=== PATIENT | female | born 1945 | race Caucasian/White ===

== ENCOUNTER 2017-03-04 10:09 | Emergency (ER) | payer OTHER ==
[2017-03-04 10:13] VITALS: BP 145/93; BMI 39.0
--- NOTE | 2017-03-04 11:28 | DR.GENAD ---
HPI - PCP Primary Care Physician: VAZQUEZ - Complaint/Symptoms Chief Complaint:: PT. C/O FEVER, BODY ACHES, SORE THROAT, COUGH, WHEEZING, RIB PAIN. - Source History Provided: Patient - Mode of Arrival Mode of Arrival: Ambulatory - Timing Onset of Chief Complaint: 03/02/17 PMH - PMH Past Medical History: Yes Past Medical History: Hyperthyroidism Past Medical History Comment: A-FIB Past Surgical History: Yes Surgical History: Other Past Surgical History Comment: CATARACTS, HEART ABLATION - Family History History of Family Medical Conditions: No - Social History Does patient currently use any type of tobacco product: No Have you used tobacco products in the last 12 months: No Type of Tobacco Use: None Does any household member use tobacco: No Alcohol Use: None Do you use any recreational Drugs:: No Lives With: Spouse Lives Where: Home - infectious screening In the last 2 months have you had wt loss of >10#?: NO Have you had fever, night sweats or hemotysis?: No Have you traveled outside the country in the last 6 months?: No Isolation: Standard PE - Vital Signs Vitals: Temperature 98.9 F Pulse Rate 92 Respiratory Rate 20 Blood Pressure 145/93 O2 Sat by Pulse Oximetry 95 ROR - Labs Reviewed Result Diagrams: 03/04/17 11:38 03/04/17 11:38 Laboratory: WBC 5.3 X10^3/uL (3.6-10.0) 03/04/17 11:38 RBC 4.39 X10^6/uL (3.5-5.4) 03/04/17 11:38 Hgb 13.3 g/dL (12.0-16.0) 03/04/17 11:38 Hct 39.2 % (36.0-47.0) 03/04/17 11:38 MCV 89.3 fL (80.0-100.0) 03/04/17 11:38 MCH 30.2 pg (27.0-34.0) 03/04/17 11:38 MCHC 33.8 g/dL (33.0-35.0) 03/04/17 11:38 RDW 14.3 % (11.6-16.5) 03/04/17 11:38 Plt Count 146 X10^3/uL (150.0-450.0) L 03/04/17 11:38 MPV 7.0 fL (7.4-11.0) L 03/04/17 11:38 Neut % 62.6 % (42.0-75.0) 03/04/17 11:38 Lymph % 29.8 % (21.0-51.0) 03/04/17 11:38 [place] % 6.2 % (0.0-13.0) 03/04/17 11:38 Eos % 0.9 % (0.9-2.9) 03/04/17 11:38 Baso % 0.5 % (0.2-1.0) 03/04/17 11:38 Neut # 3.3 x10^3/uL (2.2-4.8) 03/04/17 11:38 Lymph # 1.6 X10^3/uL (1.3-2.9) 03/04/17 11:38 [place] # 0.3 x10^3/uL (0.3-0.8) 03/04/17 11:38 Eos # 0.1 x10^3/uL (0.0-0.2) 03/04/17 11:38 Baso # 0.0 X10^3/uL (0.0-0.1) 03/04/17 11:38 Absolute Nucleated RBC 0.0 /100WBC 03/04/17 11:38 Sodium 139 mmol/L (136-145) 03/04/17 11:38 Corrected Sodium 139 mmol/L (136-145) 03/04/17 11:38 Potassium 4.2 mmol/L (3.5-5.1) 03/04/17 11:38 Chloride 102 mmol/L (98-107) 03/04/17 11:38 Carbon Dioxide 28.3 mmol/L (21-32) 03/04/17 11:38 BUN 12 mg/dL (7-18) 03/04/17 11:38 Creatinine 1.01 mg/dL (0.55-1.02) 03/04/17 11:38 Est GFR (MDRD) Af Amer > 60 (>60) 03/04/17 11:38 Est GFR (MDRD) Non-Af 57 (>60) L 03/04/17 11:38 Glucose 113 mg/dL (65-99) H 03/04/17 11:38 Calcium 8.7 mg/dL (8.5-10.1) 03/04/17 11:38 Corrected Calcium TNP 03/04/17 11:38 Total Bilirubin 0.50 mg/dL (0.2-1.0) 03/04/17 11:38 AST 33 Units/L (15-37) 03/04/17 11:38 ALT 43 Units/L (12-78) 03/04/17 11:38 Alkaline Phosphatase 65 Units/L (46-116) 03/04/17 11:38 Total Protein 7.7 g/dL (6.4-8.2) 03/04/17 11:38 Albumin 3.8 g/dL (3.4-5.0) 03/04/17 11:38 Globulin 3.9 g/dL (2.5-4.5) 03/04/17 11:38 Albumin/Globulin Ratio 1.0 Ratio (1.1-2.1) L 03/04/17 11:38 Influenza Type A (PCR) Positive (NEGATIVE) A 03/04/17 11:39 Influenza Type B (PCR) Negative (NEGATIVE) 03/04/17 11:39 - Discharge Plan Disposition: 01 HOME, SELF-CARE Condition: Stable Prescriptions: Benzonatate [TESSALON PERLES *] 200 mg PO TID PRN #30 cap PRN Reason: Cough Doxycycline Monohydrate 100 mg PO BID #20 tablet Oseltamivir Phosphate [Tamiflu] 75 mg PO BID #10 cap - Follow ups/Referrals Follow ups/Referrals: CHALINO VAZQUEZ [Primary Care Provider] - 3 days - Instructions Instructions: Influenza, Adult, [id number], Acute Bronchitis, [id number] Additional Instructions: RETURN TO ED IF WORSE.
[2017-03-04 11:51] LABS: BASOPHILS % (AUTO) 0.5 % (0.2-1.0); EOSINOPHILS # (AUTO) 0.1 x10^3/uL (0.0-0.2); EOSINOPHILS % (AUTO) 0.9 % (0.9-2.9); HEMATOCRIT 39.2 % (36.0-47.0); HEMOGLOBIN 13.3 g/dL (12.0-16.0); LYMPHOCYTES # (AUTO) 1.6 X10^3/uL (1.3-2.9); LYMPHOCYTES % (AUTO) 29.8 % (21.0-51.0); MEAN CORPUSCULAR HEMOGLOBIN 30.2 pg (27.0-34.0); MEAN CORPUSCULAR HGB CONC 33.8 g/dL (33.0-35.0); MEAN CORPUSCULAR VOLUME 89.3 fL (80.0-100.0); MONOCYTES # (AUTO) 0.3 x10^3/uL (0.3-0.8); MONOCYTES % (AUTO) 6.2 % (0.0-13.0); NEUTROPHILS # (AUTO) 3.3 x10^3/uL (2.2-4.8); NEUTROPHILS % (AUTO) 62.6 % (42.0-75.0); PLATELET COUNT 146 X10^3/uL (150.0-450.0); RED BLOOD COUNT 4.39 X10^6/uL (3.5-5.4); RED CELL DISTRIBUTION WIDTH 14.3 % (11.6-16.5); WHITE BLOOD COUNT 5.3 X10^3/uL (3.6-10.0)
--- NOTE | 2017-03-04 11:56 | RAD ---
Examination: Chest, PA and lateral views History: Fever and cough Findings: Normal heart size with clear lungs and pleural spaces. Impression: No acute or significant chest abnormality demonstrated. Reported By:
[2017-03-04 12:04] LABS: ALANINE AMINOTRANSFERASE 43 Units/L (12-78); ALBUMIN 3.8 g/dL (3.4-5.0); ALKALINE PHOSPHATASE 65 Units/L (46-116); ASPARTATE AMINO TRANSFERASE 33 Units/L (15-37); BLOOD UREA NITROGEN 12 mg/dL (7-18); CALCIUM 8.7 mg/dL (8.5-10.1); CARBON DIOXIDE 28.3 mmol/L (21-32); CHLORIDE 102 mmol/L (98-107); COR NA(FOR HYPERGLY) 139 mmol/L (136-145); CREATININE 1.01 mg/dL (0.55-1.02); SODIUM 139 mmol/L (136-145); TOTAL PROTEIN 7.7 g/dL (6.4-8.2); eGFR BLACK RACES > 60 (>60); eGFR NON BLACK RACES 57 (>60)
== END 2017-03-04 12:52 | disposition home or self-care (01) ==
LOC: ER 10:24
DX: J11.1 Influenza due to unidentified influenza virus with other respiratory manifestations (principal); J40 Bronchitis, not specified as acute or chronic
CPT/HCPCS: 36415; 71020; 80053; 85025; 87502; 99282